=== PATIENT | male | born 1965 | race Caucasian/White ===

== ENCOUNTER 2019-02-07 01:03 | Emergency (ER) | payer BC ==
[2019-02-07] MEDS ORDERED: Ondansetron INJ* 2 MG/ML VIAL IV ONE (01:19)
[2019-02-07] MEDS ORDERED: NS 0.9% 1000 ML** 1,000 ML IV ONE (01:19)
[2019-02-07] MEDS ORDERED: Ketorolac INJ* 30 MG/ML 1 ML VIAL IV PUSH ONE (01:19)
--- NOTE | 2019-02-07 01:21 | ED ---
Abdominal Pain/Male - HPI Summary HPI Summary: This pt is a 53 y/o male presenting to [facility] c/o left flank pain that woke him up from sleep today. Pt reports he was in bed sleeping when he suddenly began to experience left flank pain. He describes left flank pain that radiates into the left side of his abdomen. He states he had a couple of episodes of emesis today as well. Denies fever, chest pain, SOB, dizziness, urinary symptoms. Pt notes he had the same kind of left flank pain 5 days ago but just thought it was a cramp. He didn't have any more pain until today. Denies tobacco and alcohol use. - History of Current Complaint Chief Complaint: EDFlankPain Stated Complaint: BACK/ABD PAIN PER PT Time Seen by Provider: 02/07/19 01:16 Hx Obtained From: Patient Onset/Duration: Sudden Onset, Still Present Timing: Lasting Hours Severity Currently: Severe Pain Intensity: 10 Pain Scale Used: 0-10 Numeric Location: Flank - left Radiates: Yes Radiates to: Other - left sided abd Character: Sharp Aggravating Factor(s): Nothing Alleviating Factor(s): Nothing Associated Signs And Symptoms: Positive: Nausea, Vomiting. 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 Denies: Traveled Outside the [place] in Last 30 Days - Family History Known Family History: Positive: Diabetes Negative: Cardiac Disease Family History: Cancer - Social History Alcohol Use: None Substance Use Type: Reports: None Smoking Status (MU): Never Smoked Tobacco Review of Systems Negative: Fever Negative: Chest Pain Negative: Shortness Of Breath Positive: Vomiting, Nausea Positive: flank pain - left Neurological: Other - NEGATIVE: dizziness All Other Systems Reviewed And Are Negative: Yes Physical Exam - Summary Physical Exam Summary: Appearance: Very restless male standing up holding his left side Skin: Warm, dry, no obvious rash Eyes: sclera anicteric, no conjunctival pallor ENT: mucous membranes moist, pharynx appears normal Neck: Supple, nontender Respiratory: Clear to auscultation, no signs of respiratory distress Cardiovascular: Normal S1, S2. No murmurs. Normal distal pulses in tibial and radial bilaterally. Abdomen: Soft, nontender, normal active bowel sounds present Musculoskeletal: Normal, Strength/ROM Intact Neurological: A&Ox3, awake and alert, mentation is normal, speech is fluent and appropriate Psychiatric: affect is normal, does not appear anxious or depressed Triage Information Reviewed: Yes Vital Signs On Initial Exam: Initial Vitals Temp Pulse Resp BP Pulse Ox 97.7 F 63 16 153/102 98 02/07/19 01:04 02/07/19 01:04 02/07/19 01:04 02/07/19 01:04 02/07/19 01:04 Vital Signs Reviewed: Yes Procedures - Sedation Patient Received Moderate/Deep Sedation with Procedure: No Diagnostics - Vital Signs Vital Signs Temp Pulse Resp BP Pulse Ox 02/07/19 01:04 97.7 F 63 16 153/102 98 - Laboratory Result Diagrams: 02/07/19 01:57 02/07/19 01:57 Lab Statement: Any lab studies that have been ordered have been reviewed, and results considered in the medical decision making process. - CT CT abdomen/pelvis CT Interpretation Completed By: Radiologist Summary of CT Findings: IMPRESSION: 1. Non-obstructing 4 mm calculus left UPJ. 2. Bosniak type I renal cyst. Not followup indicated. 3. Small right lower lobe pulmonary nodule. Based on current Kalen criteria, if low risk no follow up indicated. Dr. Oakes has reviewed this report. Re-Evaluation - Re-Evaluation First Eval Re-Evaluation Time: 14:46 Change: Improved Comment: Pt states feeling better. Discussed results with pt. He will be discharged home. Abdominal Pain Male Course/Dx - Course Assessment/Plan: Pt is a 53 y/o male presenting to [facility] c/o left flank pain that woke him up from sleep today. He describes left flank pain radiating into the left side of his abdomen. Pt reports a couple of episodes of vomiting. Lab work was obtained and unremarkable except for creatinine of 1.26. CT abdomen/ pelvis shows non-obstructing 4 mm calculus left UPJ. 2. Bosniak type I renal cyst. Not followup indicated. 3. Small right lower lobe pulmonary nodule. Based on current Kalen criteria, if low risk no follow up indicated. In the ED course the pt was given IV fluids, Zofran, Toradol. Pt is feeling better. He will be discharged home with follow up from Dr. Soliz, urologist, if he doesn 't pass the stone. He was given prescriptions for Zofran and Percocet. Pt was instructed to return to the ED for any new or worsening symptoms. - Diagnoses Provider Diagnoses: Kidney stone Discharge ED - Sign-Out/Discharge Documenting (check all that apply): Patient Departure - Discharge home - Discharge Plan Condition: Improved Disposition: HOME Prescriptions: Ondansetron ODT TAB* [Zofran 4 MG Odt TAB*] 8 mg PO Q6H PRN #20 tab.odt PRN Reason: Nausea oxyCODONE/Acetamin 5/325 MG* [Percocet 5/325 TAB*] 2 tab PO Q4H PRN #15 tab MDD 6 PRN Reason: Pain - Severe Patient Education Materials: Kidney Stones (ED) Referrals: Kory Fung MD [Primary Care Provider] - Shahid Soliz MD [Medical Doctor] - Additional Instructions: Take 2 alleve twice daily for pain, supplement with the percocet as needed. The zofran is for nausea. Contact the urology office if you don't pass the stone over the next few days. You can strain the urine and save the stone when you pass it. - Billing Disposition and Condition Condition: IMPROVED Disposition: Home - Attestation Statements Document Initiated by Anna: Yes Documenting Scribe: Rhiannon Simmons Provider For Whom Anna is Documenting (Include Credential): Vamshi Oakes MD Scribe Attestation: Rhiannon Leo, scribed for Vamshi Oakes MD on 02/07/19 at 1823. Scribe Documentation Reviewed: Yes Provider Attestation: The documentation as recorded by the Rhiannon perera accurately reflects the service I personally performed and the decisions made by me, Vamshi Oakes MD Status of Scribe Document: Viewed
[2019-02-07 02:24] LABS: Albumin 4.3 g/dL (3.2-5.2); Albumin/Globulin Ratio 1.4 (1-3); BUN/Creatinine Ratio 15.9 (8-20); C Reactive Protein 1.37 mg/L (<8.01); Calcium 9.5 mg/dL (8.6-10.3); EGFR African American 72.7 (>60); EGFR Non-African American 60.1 (>60); Potassium 4.7 mmol/L (3.5-5.0); Total Bilirubin 0.5 mg/dL (0.2-1.0); Total Protein 7.3 g/dL (6.4-8.9)
[2019-02-07 02:38] LABS: ABS Basophils 0.1 10^3/ul (0-0.2); ABS Eosinophils 0.1 10^3/ul (0-0.6); ABS Lymphocytes 2.2 10^3/ul (1.0-4.8); ABS Monocytes 0.7 10^3/ul (0-0.8); ABS Neutrophils 4.5 10^3/ul (1.5-7.7); Eosinophil % 1.7 %; Hematocrit 43 % (42-52); Hemoglobin 14.5 g/dL (14.0-18.0); Lymphocyte % 28.9 %; Mean Corpuscular HGB Conc 34 g/dL (31-36); Mean Corpuscular Hemoglobin 31 pg (27-31); Mean Corpuscular Volume 91 fL (80-94); Mean Platelet Volume 9.6 fL (7.4-10.4); Nucleated Red Blood Cells % 0.1; Platelet Count 177 10^3/uL (150-450); Red Blood Count 4.77 10^6 /uL (4.18-5.48); Red Cell Distribution Width 13 % (10-15); White Blood Count 7.6 10^3/uL (3.5-10.8)
[2019-02-07] MEDS ORDERED: oxyCODONE/Acetamin 5/325 MG* TAB PO ONE (03:02)
[2019-02-07 03:11] VITALS: BP 119/76
== END 2019-02-07 03:06 | disposition home or self-care (01) ==
LOC: ED 01:03
DX: N20.0 Calculus of kidney (principal); N28.1 Cyst of kidney, acquired; R91.1 Solitary pulmonary nodule
CPT/HCPCS: 36415; 74176; 80053; 83605; 83690; 85025; 86140; 96361; 96374; 96375; 99283; A9270-GY; J1885; J2405

== ENCOUNTER → 2019-02-09 07:28 | Day surgery (SDC) | payer BC ==
--- NOTE | 2019-02-08 12:17 | HP ---
CC: Dr. Fung; Dr. Jeet Barrow * ADMITTING HISTORY AND PHYSICAL: DATE OF ADMISSION: 02/09/19 ADMITTING DIAGNOSES: 1. Calculus, left ureteropelvic junction. 2. Left hydronephrosis. PLANNED PROCEDURE: Cystoscopy, left retrograde, and left stent insertion ( likely to be followed in the near future by lithotripsy). SURGEON: Dr. Barrow. HISTORY OF PRESENT ILLNESS: David Corona Sr. is a 53-year-old gentleman, who originally had left flank pain about 8 or 9 days ago. This then subsided and over the last few days he has had progressively increasing left flank pain, nausea, and vomiting. A CT scan revealed an approximately 6-mm calculus in the left ureteropelvic junction with left hydronephrosis. He was seen in my office and continues to be in fairly severe pain and fairly severe nausea and is now being brought in for urgent left stent insertion to be followed at some point in the near future by lithotripsy. PAST MEDICAL HISTORY: Significant for: 1. Pyloric stenosis. 2. History of back pain. PAST SURGICAL HISTORY: Significant for back surgery at age 28, tonsillectomy, vasectomy, and pyloromyotomy. MEDICATIONS ON ADMISSION: 1. Oxycodone. 2. Zofran p.r.n. ALLERGIES: No known drug allergies. FAMILY HISTORY: Negative for stones. SOCIAL HISTORY: Smoking history: He is a nonsmoker. REVIEW OF SYSTEMS: He denies any chest pain or shortness of breath. There is no history of diabetes mellitus or any other major systemic illness. PHYSICAL EXAMINATION GENERAL: Reveals a pleasant, healthy-appearing gentleman, who is alert and oriented. He is in obvious discomfort. VITAL SIGNS: Blood pressure is 146/82, pulse 76 per minute and regular, temperature 97.1, oxygen saturation 98% on room air. LUNGS: Clear bilaterally. CARDIOVASCULAR: Regular rate and rhythm. S1, S2. ABDOMEN: Soft with left flank tenderness. IMPRESSION AND PLAN: I reviewed the imaging studies and had a detailed discussion with Mr. Corona. One of the options that I discussed with him was to wait and see whether he is able to get the stone passed spontaneously; however, given the proximal location of the calculus and given the fact that his original pain was about 8 or 9 days ago and the degree of pain and nausea that he is suffering, he would like to avoid waiting and would like to proceed with left stent insertion to be followed at some point by lithotripsy. All of the procedures were discussed in detail with him and the plan to proceed now is for cystoscopy, left retrograde, left stent insertion. [id number]/[facility] #: [id number] LILY
[~2019-02-09 07:28] MED LIST: Buffered Lidocaine 1% SYRIN* 1 ML/SYRINGE INTRADERM ONE; Chloroprocaine 2%* 20 ML VIAL ONE; Dexamethasone IV* 4 MG/ML 1 ML (4 MG) IV SLOW PU ONE; Dexamethasone IV* 4 MG/ML 1 ML (4 MG) ONE; DiMENhydriNATE IV* 50 MG/ML VIAL IV PUSH PRN; Famotidine IV* 10 MG/ML 2 ML (20 mg) IV ONE; Famotidine IV* 10 MG/ML 2 ML (20 mg) ONE; Gentamicin ADULT (*) 160 MG in NS 0.9% 100 ML* 100 ML IVPB ONE; Gentamicin ADULT (*) 40 MG/ML VIAL (2 ML VIAL = 80 MG) ONE; HYDROcodone/ACETAMIN 5-325 MG* 1 TAB PO PRN; Iohexol 180 (CONTRAST) 10 ML SDV IV ONE; Ketorolac INJ* 30 MG/ML 1 ML VIAL IV PRN; Lactated Ringers 1000 ML Bag* 1,000 ML IV SCH; Midazolam* 1 MG/ML 5 ML VIAL (5 MG) ONE; Naloxone* 0.4 MG/ML 1 ML VIAL IV PRN; Tamsulosin CAP* 0.4 MG ONE; Vancomycin(*) 1,000 MG VIAL ONE; cefTRIAXone(*) 2 GM ADDV.VIAL IVPB ONE; fentaNYL* 50 MCG/ML 2 ML VIAL (100 MCG VIAL) IV PRN; fentaNYL* 50 MCG/ML 2 ML VIAL (100 MCG VIAL) ONE; oxyCODONE/Acetamin 5/325 MG* TAB PO PRN
--- NOTE | 2019-02-09 11:33 | OP ---
CC: Dr. Kory Fung * DATE OF OPERATION: 02/09/19 - [facility] DATE OF : 67 SURGEON: Jeet Barrow MD ANESTHESIOLOGIST: Dr. Castillo. ANESTHESIA: Spinal. PRE-OP DIAGNOSES: Calculus left uteropelvic junction and left hydronephrosis. POST-OP DIAGNOSES: Calculus left uteropelvic junction and left hydronephrosis. OPERATIVE PROCEDURE: Cystoscopy, left retrograde pyelogram, left ureteral calculus manipulation and left stent insertion. COMPLICATIONS: None. STENT USED: 7-Yemeni stent left ureter. OPERATIVE FINDINGS: Complete obstruction, left ureter with mild left hydronephrosis secondary to calculus left proximal ureter. POSTOPERATIVE CONDITION: Stable. INDICATIONS: David Corona Sr. is a 53-year-old gentleman who has had fairly severe left flank pain and nausea secondary to a 5 to 6 mm calculus at the left ureteropelvic junction. DESCRIPTION OF PROCEDURE: After induction of spinal anesthesia, the patient was placed in dorsal lithotomy position, sequential compression devices were in place and functioning. Initial evaluation revealed mild tortuosity of the urethra in the mid urethra, the prostate was mildly enlarged. The bladder was examined. Clear efflux was noted from the right orifice. There was no efflux noted from the left orifice suggesting a complete obstruction. Guidewire was introduced into the left ureter. After some initial manipulation, the wire was advanced into the renal pelvis and once this was done, there was drainage of considerable amount of cloudy urine suggesting a high grade obstructive process. The open ended catheter was carefully visualized on fluoroscopy and advanced proximally in an effort to manipulate the calculus into the renal pelvis and I think that this was successfully accomplished. A 7-Yemeni stent was introduced and positioned under fluoroscopy with good proximal and distal positioning obtained. I elected to place a Albarado catheter for temporary bladder drainage given the fact that he had spinal anesthesia and a 16-Yemeni Albarado was placed. The plan is to bring him back for shock wave lithotripsy in the near future and this has been discussed with him previously. [id number]/[facility] #: [id number] [facility]
[2019-02-09 12:25] VITALS: BP 114/50
== END | disposition home or self-care (01) ==
LOC: OR 07:28
PROVIDERS: ATTEND Urology
DX: N20.1 Calculus of ureter (principal); N13.30 Unspecified hydronephrosis
CPT/HCPCS: 74018; 74420; C1876; J0696; J1100; J1580; J2250; J2400; J3010; J3370

== ENCOUNTER → 2019-02-21 11:10 | Day surgery (SDC) | payer BC ==
[~2019-02-21 11:10] MED LIST changes: +Acetaminophen TAB* 325 MG PO PRN; -Dexamethasone IV* 4 MG/ML 1 ML (4 MG) ONE; -DiMENhydriNATE IV* 50 MG/ML VIAL IV PUSH PRN; -Famotidine IV* 10 MG/ML 2 ML (20 mg) ONE; +Furosemide IV* 10 MG/ML 2 ML VIAL (20 MG) ONE; -Gentamicin ADULT (*) 160 MG in NS 0.9% 100 ML* 100 ML IVPB ONE; -Gentamicin ADULT (*) 40 MG/ML VIAL (2 ML VIAL = 80 MG) ONE; +HYDROmorphone INJ1* 1 MG/ML SYRINGE IV PRN; -Iohexol 180 (CONTRAST) 10 ML SDV IV ONE; -Ketorolac INJ* 30 MG/ML 1 ML VIAL IV PRN; +Midazolam* 1 MG/ML 2 ML VIAL (2 MG) ONE; -Midazolam* 1 MG/ML 5 ML VIAL (5 MG) ONE; +Ondansetron INJ* 2 MG/ML VIAL IV PRN; +Propofol* 10 MG/ML 20 ML BTL ONE; +Scopolamine 1.5 mg* PATCH TRANSDERM ONE; -Tamsulosin CAP* 0.4 MG ONE; -Vancomycin(*) 1,000 MG VIAL ONE; -fentaNYL* 50 MCG/ML 2 ML VIAL (100 MCG VIAL) IV PRN; -oxyCODONE/Acetamin 5/325 MG* TAB PO PRN
[2019-02-21] MEDS: Buffered Lidocaine 1% SYRIN* 1 ML/SYRINGE INTRADERM ONE ×2 (12:19→12:38)
[2019-02-21 17:21] VITALS: BP 115/70
--- NOTE | 2019-02-21 21:48 | OP ---
CC: Dr. Fung * DATE OF OPERATION: 02/21/19 - [facility] DATE OF : 67 SURGEON: Jeet Barrow MD ANESTHESIOLOGIST: Dr. Wall. ANESTHESIA: Spinal. PRE-OP DIAGNOSIS: Left renal calculus. POST-OP DIAGNOSIS: Left renal calculus. OPERATIVE PROCEDURE: 1. Shockwave lithotripsy of left renal calculus. 2. Cystoscopy, left stent removal. COMPLICATIONS: None. POSTOPERATIVE CONDITION: Stable. INDICATIONS: David Corona Sr., is a 53-year-old gentleman who had undergone urgent left stent insertion because of an obstructing calculus at the left ureteropelvic junction causing severe pain. He is now being brought in for definitive treatment of the calculus. OPERATIVE FINDINGS: Left renal calculus. DESCRIPTION OF PROCEDURE: After induction of spinal anesthesia, the patient was placed on the lithotripsy table in supine position. The calculus which was within the proximal coil of the stent on the left side was localized using fluoroscopy and shockwave lithotripsy was commenced at a rate of 90 shocks per minute. Periodic imaging revealed good localization and fragmentation and a total of 1600 shocks were administered. Cystoscopy was performed. The stent was seen exiting from the left orifice and was removed intact without difficulty. The bladder was empty. The patient tolerated the procedure satisfactorily and was transferred back to the recovery area in stable condition. [id number]/[facility] #: [id number] [facility]
== END | disposition home or self-care (01) ==
LOC: OR 11:10
PROVIDERS: ATTEND Urology
DX: N20.0 Calculus of kidney (principal); G47.33 Obstructive sleep apnea (adult) (pediatric); Z68.33 Body mass index [BMI] 33.0-33.9, adult
CPT/HCPCS: 74018; J0696; J1940; J2250; J2400; J2704; J3010